=== PATIENT | female | born 1980 | race Caucasian/White ===

== ENCOUNTER 2016-08-30 17:08 | Emergency (ER) | payer BC, OTHER ==
[~2016-08-30] VITALS: Ht 157.5 cm; Wt 63.5 kg
[2016-08-30 17:16] VITALS: BP 116/79
[2016-08-30] MEDS ORDERED: TETANUS-DIPTH-ACEL PERTUSSIS 0.5ML SYRG IM ONE (19:30)
== END 2016-08-30 20:06 | disposition home or self-care (01) ==
LOC: ER 17:19
DX: L03.113 Cellulitis of right upper limb (principal); Z48.01 Encounter for change or removal of surgical wound dressing
CPT/HCPCS: 90471